=== PATIENT | male | born 1995 | race Two or more races ===

== ENCOUNTER 2019-12-12 00:51 | Emergency (ER) | payer OTHER ==
[~2019-12-12] VITALS: Ht 177.8 cm; Wt 72.6 kg
[2019-12-12 01:10] VITALS: BP 135/78
--- NOTE | 2019-12-12 01:10 | NUR ---
ED Nurse Note: Patient walked in from home d/t cyclic vomiting and anxiety for the past twelve hours. Patient aao x 4 and ambulatory. Patient placed in gown and monitor. No acute distress noted.
[2019-12-12] MEDS ORDERED: LORazepam Inj 2mg/ml 1ml IV ONE (01:15)
--- NOTE | 2019-12-12 01:21 | Emergency Room Report ---
History of Present Illness General Chief Complaint: Abdominal Pain Source: Patient Present Illness HPI This a 24-year-old male with history of cyclic vomiting syndrome. He also said he has a history of severe "ulcerative colitis." He said that he has multiple blood work done, CT, endoscopy and colonoscopy. He said that his treatment included Zofran, Ativan and an acid. When I asked him about aminosalicylate or other salicylate medication or steroid, he said he is not on it. He claimed that he sees a specialist in the [place] area. Patient said this episode that was today. He said it was triggered by having a hard bowel movement. Since then he has been having vomiting. Unable keep anything down. No fever chills. Pain is diffuse in nature. Denies any other complaint. Allergies: Coded Allergies: No Known Allergies (Unverified , 12/12/19) Patient History Past Medical History: see triage record, old chart reviewed Past Surgical History: none Pertinent Family History: none Social History: Denies: smoking Immunizations: other Reviewed Nursing Documentation: PMH: Agreed; PSxH: Agreed Nursing Documentation-PMH Past Medical History: No History, Except For Hx Gastrointestinal Problems: Yes - DYSPEPSIA Review of Systems Eye: Denies: eye pain, blurred vision ENT: Denies: ear pain, nose congestion, throat swelling Respiratory: Denies: cough, shortness of breath Cardiovascular: Denies: chest pain, palpitations Gastrointestinal: Reports: abdominal pain, nausea, vomiting; Denies: diarrhea Musculoskeletal: Denies: back pain, joint pain Skin: Denies: rash Neurological: Denies: headache, numbness Endocrine: Denies: increased thirst, increased urine Hematologic/Lymphatic: Denies: easy bruising All Other Systems: negative except mentioned in HPI Physical Exam Vital Signs Date Time Temp Pulse Resp B/P (MAP) Pulse Ox O2 Delivery O2 Flow Rate FiO2 12/12/19 00:57 97.5 68 14 148/84 (105) 97 Room Air Vitals normal Sp02 EP Interpretation: reviewed, normal General Appearance: well appearing, no apparent distress, alert, other - Very histrionic Head: normocephalic, atraumatic Eyes: bilateral eye PERRL, bilateral eye EOMI ENT: hearing grossly normal, normal pharynx Neck: full range of motion, supple, no meningismus Respiratory: chest non-tender, lungs clear, normal breath sounds Cardiovascular #1: regular rate, rhythm, no murmur Gastrointestinal: no mass, no organomegaly, no bruit, non-distended, tenderness - Soft, diffuse, decreased bowel sounds Musculoskeletal: back normal, normal range of motion, gait/station normal Psychiatric: anxious Medical Decision Making Diagnostic Impression: Primary Impression: Cyclic vomiting syndrome Additional Impression: Anxiety ER Course Patient presents with vomiting secondary to his cyclic vomiting syndrome. He is also very anxious. I doubt this diagnosis ulcerative colitis. No evidence of acute abdomen or obstruction. He felt better now. Will discharge home. Last Vital Signs Date Time Temp Pulse Resp B/P (MAP) Pulse Ox O2 Delivery O2 Flow Rate FiO2 12/12/19 00:57 97.5 68 14 148/84 (105) 97 Room Air Status: improved Disposition: HOME, SELF-CARE Condition: Stable Scripts Ondansetron (Zofran) 4 Mg Tablet 4 MG ORAL Q6H PRN for Nausea & Vomiting, #30 TAB 0 Refills Prov: Home Jordan MD 12/12/19 Additional Instructions: Follow-up with your doctor in 2 to 3 days for recheck. Return if symptoms worsen. Home Jordan MD Dec 12, 2019 01:21
[2019-12-12 01:31] LABS: HEMATOCRIT 46.1 % (42.0-52.0); HEMOGLOBIN 16.3 G/DL (14.2-18.0); MEAN CORPUSCULAR VOLUME 84 FL (80-99); PLATELET COUNT 284 K/UL (150-450); RED CELL DISTRIBUTION WIDTH 11.3 % (11.6-14.8); WHITE BLOOD COUNT 9.8 K/UL (4.8-10.8)
--- NOTE | 2019-12-12 01:32 | NUR ---
ED Nurse Note: Attempted to collect urine, patient stated unable to provide sample.
[2019-12-12 01:51] LABS: ANION GAP 15 mmol/L (5-15); BLOOD UREA NITROGEN 14 mg/dL (7-18); CALCIUM 10.2 MG/DL (8.5-10.1); CARBON DIOXIDE 23 MMOL/L (21-32); CHLORIDE 104 MMOL/L (98-107); CREATININE 0.9 MG/DL (0.55-1.30); POTASSIUM 3.6 MMOL/L (3.5-5.1); SODIUM 142 MMOL/L (136-145)
[2019-12-12 01:56] LABS: ALANINE AMINOTRANSFERASE 22 U/L (12-78); ALBUMIN 4.8 G/DL (3.4-5.0); ALBUMIN/GLOBULIN RATIO 1.3 (1.0-2.7); ALKALINE PHOSPHATASE 64 U/L (46-116); ASPARTATE AMINO TRANSFERASE 20 U/L (15-37); BILIRUBIN,TOTAL 0.8 MG/DL (0.2-1.0)
[2019-12-12] MEDS ORDERED: Promethazine HCl 25 MG in NS 55 ML IVPB ONE (02:00)
[2019-12-12] MEDS ORDERED: ZOFRAN4 MG ORAL (02:25)
--- NOTE | 2019-12-12 03:03 | NUR ---
ED Nurse Note: Attempted to provide urine sample, pt still unable.
[2019-12-12] MEDS ORDERED: Ketorolac 30mg Inj ONE (03:08)
[2019-12-12 03:14] VITALS: BP 128/74
[2019-12-12] MEDS ORDERED: Ketorolac 30mg Inj IV ONE (03:15)
[2019-12-12] MEDS ORDERED: Morphine Sulfate 4mg/ml Inj (IV USE ONLY) IVP ONE (03:30)
[2019-12-12 03:32] VITALS: BP 130/79
--- NOTE | 2019-12-12 03:32 | NUR ---
ER DISCHARGE NOTE: Patient is cleared to be discharged per ERMD, pt is aox4, on room air, with stable vital signs. pt was given dc and prescription instructions, pt was able to verbalize understanding, pt id band and iv site removed intact without complications. pt is able to ambulate with steady gait. pt took all belongings. pt stable upon discharge.
== END 2019-12-12 03:32 | disposition home or self-care (01) ==
LOC: EMR 01:43
DX: R11.15 Cyclical vomiting syndrome unrelated to migraine (principal); F41.9 Anxiety disorder, unspecified; R10.9 Unspecified abdominal pain
CPT/HCPCS: 36415; 80053; 83690; 85025; 96361; 96365; 96375; 99284; J1885; J2270; J2405; J2550; J7030